=== PATIENT | female | born 1930 | race Caucasian/White ===

== ENCOUNTER 2018-06-30 15:27 | Inpatient (IN) | payer OTHER, BC ==
[~2018-06-30] VITALS: Ht 160 cm; Wt 79.4 kg
[2018-06-30 15:43] VITALS: Ht 160 cm; Wt 79.4 kg
[2018-06-30 16:30] LABS: microscopic required? YES; urine erythrocyte 1+ (NEGATIVE)
[2018-06-30 16:34] LABS: PLATELET COUNT 166 x10^3mcL (130-400); RED CELL DISTRIBUTION WIDTH 13.8 % (11.5-14.5)
[2018-06-30 16:46] LABS: CALCIUM 8.8 mg/dL (8.5-10.1); CARBON DIOXIDE 20.8 mmol/L (21-32); CHLORIDE SERUM 106 mmol/L (98-107); CREATININE SERUM 2.1 mg/dL (0.6-1.0); GLUCOSE SERUM 128 mg/dL (74-106); POTASSIUM SERUM 4.9 mmol/L (3.5-5.1); SODIUM SERUM 138 mmol/L (136-145)
[2018-06-30 16:50] LABS: ALKALINE PHOSPHATASE 75 U/L (46-116); ALT/SGPT 20 U/L (14-59); AST/SGOT 19 U/L (15-37); BILIRUBIN TOTAL 0.8 mg/dL (0.20-1.00)
[2018-06-30 16:52] LABS: TOTAL PROTEIN, SERUM 8.4 g/dL (6.4-8.2)
[2018-06-30 17:07] LABS: BAND NEUTROPHIL 10 % (0-10); BASOPHIL 0 % (0-2); METAMYELOCTE 3 % (0-2); MONOCYTE 4 % (0-7); MYELOCYTE 1 % (0-2); SEGMENTED NEUTROPHILS 79 % (37-75)
[2018-06-30 17:08] LABS: PLATELET MORPHOLOGY PLATELETS NORMAL; rbc morphology (normal/abnorm) NORMAL (NORMAL)
[2018-06-30 19:35] LABS: AMPHETAMINE QUAL UR NONE DETECTED (See below)
[2018-06-30 19:39] LABS: CHOLESTEROL/HDL RATIO 2.9; MAGNESIUM 1.9 mg/dL (1.8-2.4); PHOSPHOROUS 2.8 mg/dL (2.5-4.9)
[2018-06-30 19:47] LABS: T3 TOTAL 0.95 ng/mL
[2018-06-30 19:48] LABS: FREE T4 1.03 ng/dL (0.76-1.46); FREE THYROXINE INDEX 2.7 ug/dL (1.4-4.5); T4(THYROXINE) 8.3 ug/dL (4.7-13.3)
[2018-06-30] MEDS ORDERED: LOSARTAN POTASS50 M1 PO ×2 (19:53→20:40)
[2018-06-30] MEDS ORDERED: FUROSEMIDE20 MG PO ×2 (19:53→20:39)
[2018-06-30] MEDS ORDERED: NOR5 PO ×2 (19:53→20:40)
[2018-06-30] MEDS ORDERED: TOPROL XL25 MG PO (19:54)
[2018-06-30] MEDS ORDERED: XANAX XR1 M1 (20:39)
[2018-06-30] MEDS ORDERED: TOPROL XL25 MG (20:39)
[2018-06-30] MEDS ORDERED: RANITIDINE HYD150 M2 PO (20:40)
[2018-06-30 21:14] VITALS: BP 145/54
[2018-07-01 05:01] VITALS: BP 132/46
[2018-07-01 07:18] LABS: BASOPHIL % 0.1 % (0-2); PLATELET COUNT 140 x10^3mcL (130-400)
[2018-07-01 07:37] LABS: CALCIUM 8.2 mg/dL (8.5-10.1); CARBON DIOXIDE 19.9 mmol/L (21-32); CHLORIDE SERUM 109 mmol/L (98-107); CREATININE SERUM 1.9 mg/dL (0.6-1.0); GLUCOSE SERUM 100 mg/dL (74-106); PHOSPHOROUS 3.1 mg/dL (2.5-4.9); POTASSIUM SERUM 4.8 mmol/L (3.5-5.1); SODIUM SERUM 140 mmol/L (136-145)
[2018-07-01 08:56] VITALS: BP 116/62
[2018-07-01 17:11] VITALS: BP 169/49
[2018-07-01 20:43] VITALS: BP 125/51
[2018-07-02 05:51] VITALS: BP 131/54
[2018-07-02 07:03] LABS: CALCIUM 8.4 mg/dL (8.5-10.1); CARBON DIOXIDE 21.2 mmol/L (21-32); CHLORIDE SERUM 109 mmol/L (98-107); CREATININE SERUM 1.9 mg/dL (0.6-1.0); GLUCOSE SERUM 93 mg/dL (74-106); POTASSIUM SERUM 4.9 mmol/L (3.5-5.1); SODIUM SERUM 141 mmol/L (136-145)
[2018-07-02 07:13] LABS: BASOPHIL % 0.2 % (0-2); PLATELET COUNT 153 x10^3mcL (130-400); RED CELL DISTRIBUTION WIDTH 13.1 % (11.5-14.5)
[2018-07-02 09:51] VITALS: BP 137/59
[2018-07-02 11:39] VITALS: BP 137/59
[2018-07-02] MEDS ORDERED: KEFLEX500 M1 PO (11:39)
[2018-07-02] MEDS ORDERED: LAC PO (11:54)
== END 2018-07-02 12:04 | disposition home or self-care (01) | DRG 640 ==
LOC: ED 15:27 → MU 19:23
PROVIDERS: Emergency Medicine; Family Medicine
DX: E86.0 Dehydration (principal); N17.0 Acute kidney failure with tubular necrosis; N39.0 Urinary tract infection, site not specified; N18.4 Chronic kidney disease, stage 4 (severe); I12.9 Hypertensive chronic kidney disease with stage 1 through stage 4 chronic kidney disease, or unspecified chronic kidney disease; D64.9 Anemia, unspecified; R31.9 Hematuria, unspecified; E83.51 Hypocalcemia; E78.5 Hyperlipidemia, unspecified; Z68.31 Body mass index [BMI] 31.0-31.9, adult
CPT/HCPCS: 36600; 83880; 84439; J0696; J2765; J7030; J7040; Q0092

== ENCOUNTER 2018-12-23 12:49 | Inpatient (IN) | payer OTHER, BC ==
[~2018-12-23] VITALS: Ht 160 cm; Wt 82.1 kg
[~2018-12-23 12:49] MED LIST: FUROSEMIDE20 MG PO; KEFLEX500 M1 PO; LAC PO; LOSARTAN POTASS50 M1 PO; NOR5 PO; RANITIDINE HYD150 M2 PO; TOPROL XL25 MG; TOPROL XL25 MG PO; XANAX XR1 M1 PO
[2018-12-23 12:53] VITALS: Ht 160 cm; Wt 82.1 kg
[2018-12-23 13:24] LABS: PLATELET COUNT 288 x10^3mcL (130-400); RED CELL DISTRIBUTION WIDTH 13.5 % (11.5-14.5)
[2018-12-23 13:25] LABS: BASOPHIL % 0 % (0-2)
[2018-12-23 13:47] LABS: CARBON DIOXIDE 20.9 mmol/L (21-32); CHLORIDE SERUM 104 mmol/L (98-107); CREATININE SERUM 2.6 mg/dL (0.6-1.0); GLUCOSE SERUM 108 mg/dL (74-106); POTASSIUM SERUM 4.5 mmol/L (3.5-5.1); SODIUM SERUM 138 mmol/L (136-145)
[2018-12-23 13:51] LABS: ALKALINE PHOSPHATASE 150 U/L (46-116); ALT/SGPT 29 U/L (14-59); AST/SGOT 25 U/L (15-37); BILIRUBIN TOTAL 1.56 mg/dL (0.20-1.00); LIPASE 276 IU/L (73-393); TOTAL PROTEIN, SERUM 8.1 g/dL (6.4-8.2); TRIGLYCERIDES 66 mg/dL (<150)
[2018-12-23 13:52] LABS: ALBUMIN 2.6 g/dL (3.4-5.0); CHOLESTEROL 118 mg/dL (<200); CHOLESTEROL/HDL RATIO 4.1; HDL CHOLESTEROL 29 mg/dL (40-60)
[2018-12-23 13:59] LABS: FREE T4 1.37 ng/dL (0.76-1.46); T4(THYROXINE) 8.5 ug/dL (4.7-13.3)
[2018-12-23 16:40] LABS: microscopic required? YES; urine erythrocyte 3+ (NEGATIVE)
[2018-12-23 17:25] VITALS: BP 120/46
[2018-12-23 20:38] VITALS: BP 116/49
[2018-12-23 20:56] LABS: T3 TOTAL 0.77 ng/mL
[2018-12-24 04:53] VITALS: BP 119/47
[2018-12-24 08:10] LABS: PLATELET COUNT 255 x10^3mcL (130-400); RED CELL DISTRIBUTION WIDTH 13.6 % (11.5-14.5)
[2018-12-24 08:11] LABS: BASOPHIL % 0 % (0-2)
[2018-12-24 09:06] LABS: CALCIUM 8.5 mg/dL (8.5-10.1); CARBON DIOXIDE 21.1 mmol/L (21-32); CHLORIDE SERUM 109 mmol/L (98-107); CREATININE SERUM 2.3 mg/dL (0.6-1.0); GLUCOSE SERUM 119 mg/dL (74-106); MAGNESIUM 2.2 mg/dL (1.8-2.4); PHOSPHOROUS 3.7 mg/dL (2.5-4.9); POTASSIUM SERUM 4.9 mmol/L (3.5-5.1); SODIUM SERUM 141 mmol/L (136-145)
[2018-12-24 09:46] VITALS: BP 112/45
[2018-12-24 13:07] VITALS: BP 97/42
[2018-12-24 17:46] VITALS: BP 106/47
[2018-12-24 21:10] VITALS: BP 114/54
[2018-12-25 05:15] VITALS: BP 133/55
[2018-12-25 07:12] LABS: CALCIUM 8.3 mg/dL (8.5-10.1); CARBON DIOXIDE 19.6 mmol/L (21-32); CHLORIDE SERUM 106 mmol/L (98-107); CREATININE SERUM 2.4 mg/dL (0.6-1.0); GLUCOSE SERUM 113 mg/dL (74-106); MAGNESIUM 2.1 mg/dL (1.8-2.4); PHOSPHOROUS 2.8 mg/dL (2.5-4.9); POTASSIUM SERUM 4.9 mmol/L (3.5-5.1); SODIUM SERUM 136 mmol/L (136-145)
[2018-12-25 07:24] LABS: PLATELET COUNT 284 x10^3mcL (130-400); RED CELL DISTRIBUTION WIDTH 13.6 % (11.5-14.5)
[2018-12-25 07:25] LABS: BASOPHIL % 0 % (0-2)
[2018-12-25 09:58] VITALS: BP 118/44
[2018-12-25 15:11] VITALS: BP 132/42
[2018-12-25 17:27] VITALS: BP 139/52
[2018-12-25 21:25] VITALS: BP 114/44
[2018-12-26 06:24] VITALS: BP 127/60
[2018-12-26] MEDS ORDERED: BACTRIM DS1 TAB PO (09:49)
[2018-12-26 10:14] VITALS: BP 134/55
[2018-12-26 11:30] VITALS: BP 134/55
[2018-12-26 13:19] VITALS: BP 139/54
== END 2018-12-26 14:27 | disposition home health service (06) | DRG 689 ==
LOC: ED 12:49 → DU 15:11 → EDBEDREQSVC 15:27 → DU 16:59
PROVIDERS: Specialist; ADMIT Internal Medicine
DX: N39.0 Urinary tract infection, site not specified (principal); N17.0 Acute kidney failure with tubular necrosis; N18.4 Chronic kidney disease, stage 4 (severe); E44.1 Mild protein-calorie malnutrition; N13.39 Other hydronephrosis; K59.00 Constipation, unspecified; B96.29 Other Escherichia coli [E. coli] as the cause of diseases classified elsewhere; I12.9 Hypertensive chronic kidney disease with stage 1 through stage 4 chronic kidney disease, or unspecified chronic kidney disease; K57.30 Diverticulosis of large intestine without perforation or abscess without bleeding; Z68.30 Body mass index [BMI] 30.0-30.9, adult; Z87.442 Personal history of urinary calculi
CPT/HCPCS: 82962; 83880; 84439; 97116-GP; 97530-GP; C9113; J0696; J1885; J3010; J7030; J7042; Q0092